=== PATIENT | male | born 1990 | race African-American/Black ===

== ENCOUNTER 2022-10-21 12:04 | Observation (INO) ==
[2022-10-21] MEDS ORDERED: SODIUM CHLORIDE 0.9% 1,000 ML IV STA (13:26)
[2022-10-21 13:55] LABS: Basophils % 0.2 % (0.0-0.8); Eosinophils % 0.1 % (0.00-10.9); Hematocrit 48.1 VOL% (42.0-52.0); Hemoglobin 16.5 GM/DL (14.0-18.0); Immature Granulocytes % 0.5 %; Immature Granulocytes Absolute 0.07 #; Lymphocytes # 1.4 10*3/uL (1.4-4.0); Lymphocytes % 9.9 % (21.2-54.2); Mean Corpuscular HGB Conc 34.3 GM/DL (32-36); Mean Corpuscular Volume 91.8 FL (87-102); Mean Platelet Volume 10.5 FL (9.6-12.0); Monocytes # 0.9 10*3/uL (0.11-0.8); Monocytes % 6.7 % (1.7-12.7); Neutrophils % 82.6 % (38.7-73.9); Platelet Count 203 T/CUMM (130-400); Red Blood Count 5.24 MC/CUMM (3.8-5.5); White Blood Count 13.8 T/CUMM (4-12)
[2022-10-21 14:18] LABS: Albumin 4.9 G/DL (3.4-5.0); Bilirubin,Total 1.2 MG/DL (0.20-1.00); Calcium 9.8 MG/DL (8.5-10.1); Osmolality,Calculated 276.5 MOS/KG (273-304); Potassium 3.5 MMOL/L (3.5-5.1); Total Protein 8.2 G/DL (6.4-8.2)
[2022-10-21] MEDS ORDERED: DICYCLOMINE 20 MG TABLET PO STA (14:41)
[2022-10-21] MEDS ORDERED: ONDANSETRON 4 MG/2 ML VIAL IV STA (15:50)
[2022-10-21] MEDS ORDERED: HYDROmorphone 1 MG/1 ML SYRINGE IV STA (15:50)
[2022-10-21] MEDS ORDERED: ONDANSETRON 4 MG/2 ML VIAL IV PRN (17:19)
[2022-10-21] MEDS ORDERED: HYDROmorphone 1 MG/1 ML SYRINGE IV PRN (17:20)
[2022-10-21] MEDS: PIPERACILLIN/TAZOBACTAM 3,375 MG in SODIUM CHLORIDE 0.9% 100 ML IV SCH (18:04)
[2022-10-21] MEDS: SODIUM CHLORIDE 0.9% 1,000 ML IV SCH (21:00)
[2022-10-22] MEDS: PIPERACILLIN/TAZOBACTAM 3,375 MG in SODIUM CHLORIDE 0.9% 100 ML IV SCH (01:32)
[2022-10-22] MEDS: SODIUM CHLORIDE 0.9% 1,000 ML IV SCH (04:44)
[2022-10-22] MEDS ORDERED: LIDOCAINE 1% 5 ML VIAL ONE (08:42)
[2022-10-22] MEDS ORDERED: TISSUE ADHESIVE 1 EACH APPLICATOR TOP ONE (08:42)
[2022-10-22] MEDS ORDERED: BUPIVACAINE MPF 0.25% 10 ML VIAL ONE (08:42)
[2022-10-22] MEDS ORDERED: ACETAMINOPHEN INJ 1,000 MG/100 ML VIAL IV ONE (09:03)
[2022-10-22] MEDS ORDERED: MIDAZOLAM 2 MG/2 ML VIAL ONE (09:03)
[2022-10-22] MEDS ORDERED: SUCCINYLCHOLINE 200 MG/10 ML VIAL ONE ×2 (09:03)
[2022-10-22] MEDS ORDERED: ROCURONIUM 50 MG/5 ML VIAL IV ONE ×2 (09:03)
[2022-10-22] MEDS ORDERED: propofoL 200 MG/20 ML VIAL IV ONE ×2 (09:03→10:03)
[2022-10-22] MEDS ORDERED: fentaNYL 100 MCG/2 ML VIAL ONE ×2 (09:03→10:03)
[2022-10-22] MEDS ORDERED: LIDOCAINE 2% 5 ML VIAL ONE (09:03)
[2022-10-22] MEDS ORDERED: LACTATED RINGERS 1,000 ML IV SCH (09:30)
[2022-10-22 11:42] VITALS: BP 132/78
== END 2022-10-22 13:43 | disposition home or self-care (01) ==
LOC: N.ED 12:04 → N.EDINP 12:04 → N.2W 18:47
PROVIDERS: ADMIT Surgery; ATTEND Surgery